=== PATIENT | female | born 2000 | race African-American/Black ===

== ENCOUNTER 2021-12-20 14:33 | Emergency (ER) | payer OTHER ==
[~2021-12-20] VITALS: Ht 170.2 cm; Wt 86.2 kg
[2021-12-20 15:36] VITALS: BP 107/58
[2021-12-20] MEDS ORDERED: IBUPROFEN 800 MG TAB PO ONE (16:00)
[2021-12-20] MEDS ORDERED: METH750T22 PO (16:54)
[2021-12-20] MEDS ORDERED: IBUP800T27 PO (16:54)
== END 2021-12-20 17:04 | disposition home or self-care (01) ==
LOC: EDBD 14:33 → ER 14:33
DX: S16.1XXA Strain of muscle, fascia and tendon at neck level, initial encounter (principal); S29.012A Strain of muscle and tendon of back wall of thorax, initial encounter; V43.62XA Car passenger injured in collision with other type car in traffic accident, initial encounter; Y93.89 Activity, other specified; Y92.410 Unspecified street and highway as the place of occurrence of the external cause; Y99.8 Other external cause status
CPT/HCPCS: 72040; 72070